=== PATIENT | female | born 1935 | race Caucasian/White ===

== ENCOUNTER → 2017-11-17 | Outpatient (CLI) | payer OTHER ==
[2017-11-17 23:11] LABS: MRSA BY PCR Negative (Negative)
== END | disposition home or self-care (01) ==
LOC: SURGPAT 13:26
DX: Z01.818 Encounter for other preprocedural examination (principal); M17.11 Unilateral primary osteoarthritis, right knee
CPT/HCPCS: 36415; 71046; 87641; 93005

== ENCOUNTER 2017-11-24 05:59 | Observation (INO) | payer OTHER ==
[2017-11-24] MEDS: IV RINGERS,LACTATED 1000ML 1,000 ML IV ×2 (06:49→10:37)
[2017-11-24] MEDS: CELECOXIB 200 MG CAPSULE. PO ×2 (06:55→20:45)
[2017-11-24] MEDS: ACETAMINOPHEN 500 MG TABLET PO (06:55)
[2017-11-24] MEDS ORDERED: MORPHINE SULFATE 4 MG/ML DISP.SYRIN. IV (07:00)
[2017-11-24] MEDS ORDERED: LIDOCAINE 2% PF Vial for OR 5 ML VIAL. (07:00)
[2017-11-24] MEDS ORDERED: DEXAMETHASONE SOD PHOS 20 MG/5 ML VIAL. (07:00)
[2017-11-24] MEDS ORDERED: ceFAZolin 2GM PREMIX 2 GM/50 ML BAG IV (07:00)
[2017-11-24] MEDS ORDERED: LIDOCAINE 1% PF 2 ML VIAL. ID (07:00)
[2017-11-24] MEDS ORDERED: fentaNYL PF VIAL 100 MCG/2 ML VIAL IV ×3 (07:00→12:15)
[2017-11-24] MEDS ORDERED: PROPOFOL 20 ML IV (07:00)
[2017-11-24] MEDS ORDERED: ONDANSETRON PF 4 MG/2 ML VIAL. (07:00)
[2017-11-24] MEDS ORDERED: PROCHLORPERAZINE 10 MG/2 ML VIAL. IV ×2 (07:00→12:15)
[2017-11-24 07:16] LABS: INR 1.1 (0.8-1.1); PARTIAL THROMBOPLASTIN TIME 29 SEC (24-38); PROTHROMBIN TIME PATIENT 13.1 SEC (11.7-14.0)
[2017-11-24] MEDS: TRANEXAMIC ACID 1,000 MG in IV NS 50ML -- 1ST BAG INJ ×2 (08:16→08:20)
[2017-11-24] MEDS: MORPHINE SULFATE 5 MG, KETOROLAC 30 MG, ROPIVacaine 0.5% PF 60 ML, EPINEPHrine 0.5 MG i... INT ART (08:25)
[2017-11-24] MEDS ORDERED: fentaNYL PF VIAL 100 MCG/2 ML VIAL ×2 (08:28→09:51)
[2017-11-24] MEDS ORDERED: SEVOFLURANE 61 TO 120 MINUTES. IH (08:58)
[2017-11-24] MEDS: TRANEXAMIC ACID 1,000 MG in IV NS 50ML -- 2ND BAG INJ (09:35)
[2017-11-24] MEDS: fentaNYL PF VIAL 100 MCG/2 ML VIAL IV ×3 (11:15→11:57)
[2017-11-24] MEDS ORDERED: DEXTROSE 50% 25 GM / 50ML DISP.SYRIN. IV (12:15)
[2017-11-24] MEDS ORDERED: CALCIUM CARBONATE 500 MG TAB.CHEW PO (12:15)
[2017-11-24] MEDS ORDERED: diphenhydrAMINE 50 MG/ML VIAL IV (12:15)
[2017-11-24] MEDS ORDERED: 0.9 % SODIUM CHLORIDE 10 ML DISP.SYRIN. IV (12:15)
[2017-11-24] MEDS ORDERED: HYDROcodone/APAP 10/325 1 TAB TABLET PO (12:15)
[2017-11-24] MEDS ORDERED: traMADol 50 MG TABLET PO ×2 (12:15)
[2017-11-24] MEDS ORDERED: oxyCODONE/APAP 5/325 1 TAB TABLET PO (12:15)
[2017-11-24] MEDS ORDERED: ACETAMINOPHEN 325 MG TABLET. PO (12:15)
[2017-11-24] MEDS: HYDROcodone/APAP 7.5/325MG 1 TAB TABLET PO ×3 (13:39→22:28)
[2017-11-24] MEDS ORDERED: ceFAZolin SODIUM 1 GM in IV DEXTROSE 5% 50 ML IV (14:00)
[2017-11-24] MEDS: ceFAZolin SODIUM IV Push 1 GM VIAL. IVP ×2 (14:28→20:22)
[2017-11-24] MEDS: CALCIUM CARB/VIT D3 500/200 TABLET. PO (16:45)
[2017-11-24] MEDS: oxyCODONE/APAP 7.5/325 1 TAB TABLET PO (18:38)
[2017-11-24] MEDS: ASPIRIN ENTERIC COATED 325 MG TABLET.DR. PO (20:45)
[2017-11-24] MEDS: ZOLPIDEM 5 MG TABLET. PO (23:07)
[2017-11-25] MEDS: ceFAZolin SODIUM IV Push 1 GM VIAL. IVP (02:25)
[2017-11-25] MEDS: PANTOPRAZOLE 40 MG TABLET.DR. PO (07:06)
[2017-11-25] MEDS: CELECOXIB 200 MG CAPSULE. PO (08:06)
[2017-11-25] MEDS: ASPIRIN ENTERIC COATED 325 MG TABLET.DR. PO (08:06)
[2017-11-25] MEDS: CALCIUM CARB/VIT D3 500/200 TABLET. PO (08:06)
[2017-11-25] MEDS: CHOLECALCIFEROL (VITAMIN D3) 1,000 UNIT TABLET PO (08:06)
[2017-11-25] MEDS: CITALOPRAM 20 MG TABLET. PO (08:07)
[2017-11-25] MEDS: LOSARTAN POTASSIUM 25 MG TABLET. PO (08:07)
[2017-11-25] MEDS: BISMUTH SUBSALICYLATE 262 MG/15 ML ORAL.SUSP 236ML BOTTLE. PO (08:09)
[2017-11-25] MEDS: HYDROcodone/APAP 7.5/325MG 1 TAB TABLET PO ×2 (10:07→12:58)
[2017-11-25] MEDS ORDERED: BISACODYL 10 MG SUPP.RECT. PR (16:00)
== END 2017-11-25 16:10 | disposition home health service (06) ==
LOC: SURG 05:59 → 4 SOUTHEST 12:05
DX: M17.11 Unilateral primary osteoarthritis, right knee (principal); Z87.891 Personal history of nicotine dependence; Z96.659 Presence of unspecified artificial knee joint
CPT/HCPCS: 27446; 36415; 73560; 85610; 85730; 86850; 86900; 86901; 88305; 88311; 96374; 96376; 97116-GP; 97150-GP; 97162-GP; 97530-GP; C1713; G0378; G0379; G8978-CL-GP; G8979-CJ-GP; G8980-CK-GP; J0171; J0690; J1100; J1885; J2270; J2405; J2704; J2795; J3010

== ENCOUNTER → 2019-01-13 | Outpatient (CLI) | payer OTHER ==
[2017-11-25 11:27] VITALS: BP 140/69
[~2019-01-13] MED LIST: ASPI325T11 PO; ASPI81TA50 PO; CALC-77 PO; CELE200C PO; CHOL10003 PO; CITA20TA6 PO; FERR325T3 PO; HYDR-2765 PO; IRBE300T3 PO; MELO7.5T29 PO; PANT20TA2 PO; WARF-78 PO; [UNRECOGNIZED DRUG - CODE] PO
--- NOTE | 2019-01-13 12:22 | RAD ---
MRI of the lumbar spine without contrast 01/13/2019 CLINICAL HISTORY: Low back pain which radiates down both legs, right greater than left. TECHNIQUE: Unenhanced T1-weighted and T2-weighted sagittal and axial and inversion recovery sagittal images the lumbar spine were obtained. FINDINGS: Comparison is made to radiographs lumbar spine dated 12/22/2018. Minimal S-shaped curvature of the thoracolumbar spine is seen. Degenerative signal changes are seen involving all the disks of the lumbar spine. Degenerative signal changes are seen within the marrow surrounding these discs. Loss of height at L5-S1 disc is noted. The conus medullaris is normal morphology, position, and signal characteristics. At the L1-2, L2-3 and L3-4 disc spaces there are minimal to mild generalized disc bulges. Degenerative changes are seen involving the facet joints bilaterally. There is mild ligamentum flavum hypertrophy bilaterally. Findings when combined do not result in significant central spinal canal or neural foraminal stenosis. At the L4-5 disc space there is a mild generalized disc bulge. Degenerative changes are seen involving the facet joints bilaterally. There is moderate ligamentum flavum hypertrophy bilaterally. These findings when combined result in mild right greater than left central spinal canal stenosis. No neural foraminal stenosis is seen. The L5-S1 disc space there is a mild to moderate generalized disc bulge. This is eccentric to the left. Degenerative changes are seen involving the facet joints bilaterally. There is mild ligament flavum hypertrophy bilaterally. These findings when combined do not result in significant central spinal canal stenosis. Mild left neural foraminal stenosis is seen. IMPRESSION: The changes of degenerative disc disease are seen involving the lumbar spine. These findings result in mild right greater than left central spinal canal stenosis at L4-5. Mild left neural foraminal stenosis is seen at L5-S1. Electronically signed by: Damon Vines MD (01/13/2019 12:19 PM) [facility]
== END | disposition home or self-care (01) ==
LOC: MRI 10:52
PROVIDERS: ATTEND Orthopaedic Surgery
DX: M51.36 Other intervertebral disc degeneration, lumbar region (principal); M48.07 Spinal stenosis, lumbosacral region; M51.27 Other intervertebral disc displacement, lumbosacral region; M47.817 Spondylosis without myelopathy or radiculopathy, lumbosacral region; M43.8X5 Other specified deforming dorsopathies, thoracolumbar region
CPT/HCPCS: 72148

== ENCOUNTER → 2020-01-06 | Day surgery (SDC) | payer OTHER ==
[~2020-01-06] MED LIST changes: +IRBE300T23 PO; -IRBE300T3 PO; +IV RINGERS,LACTATED 1000ML 1,000 ML IV SCH; +PROPOFOL 20 ML IV ONE
--- NOTE | 2020-01-06 09:49 | HP ---
ADMIT DATE: 01/06/2020 UPDATED HISTORY AND PHYSICAL REFERRING PHYSICIAN: Chito Goldberg. REASON: Diarrhea. HISTORY OF PRESENT ILLNESS: An 84-year-old female with past medical history significant for breast cancer, arthritis, depression, history of colonic polyps, hypertension, seen with persistent diarrhea associated with incontinence of stool, urgency and pain worsened with eating and present for years and recently has gotten worse, there has been no recent antibiotics or travel. Weight and appetite are stable. Prior colonoscopy in 2011 was nonrevealing. No family history of inflammatory bowel disease. Colon cancer is present. With continued issues, requests additional evaluation. PAST MEDICAL HISTORY: Significant for breast cancer, arthritis, depression, hemorrhoids, history of colonic polyps, hypertension. ALLERGIES: None. MEDICATIONS: Bismuth, calcium, Celebrex, vitamin D, citalopram, ferrous sulfate, irbesartan, Meloxicam, and pantoprazole. FAMILY HISTORY: Significant for MIs with both parents, breast cancer with an aunt, CVA with father, esophageal and stomach cancer with sibling. SOCIAL HISTORY: She is a former smoker and social drinker. PAST SURGICAL HISTORY: Significant for breast surgery and joint replacement. REVIEW OF SYSTEMS: Per records. PHYSICAL EXAMINATION: GENERAL: Reveals a well-nourished, well-developed female. VITAL SIGNS: Temperature is 97.7, pulse 87, respirations 20, pulse oximetry 97%. LUNGS: Clear. CARDIOVASCULAR: Reveals an S1, S2 without S3, S4 or appreciable murmur. ABDOMEN: Reveals a soft abdomen, normal bowel sounds, without appreciable hepatosplenomegaly or tenderness. IMPRESSION: Diarrhea, etiology is to be determined. Differential includes collagenous colitis, inflammatory bowel disease, diverticular disease, colon cancer, stricture, malabsorption possible as well. Therefore, I recommend colonoscopy. Risks and benefits of procedure have been previously discussed including risk of hemorrhage and perforation during the operation and she is willing to proceed at this time. PHIL CURTIS MD DR: COOPER/stephanie JOB#: [id number] / [id number]
[2020-01-06 10:00] VITALS: BP 166/90
--- NOTE | 2020-01-09 17:06 | PATHOLOGY ---
[facility] Accession Number: [id number] . 01 Material submitted: . colon - RANDOM COLON BIOPSIES . 01 Clinical history: . Chronic diarrhea . 02 Diagnosis: Colonic mucosa, random colon biopsies: - No significant pathologic abnormalities. (JPM:tessie; 01/09/2020) QMS 01/09/2020 1054 Local . 02 Comment: Sections of the random colon biopsy reveal multiple segments of colonic mucosa. There is no evidence of a colonic destructive colitis, lymphocytic colitis, or collagenous colitis. (JPM:tessie; 01/09/2020) . 02 Electronically signed: . Tommy Schwab MD, Pathologist NPI- [id number] . 01 Gross description: . The specimen is received in formalin, labeled "Andrisevic, Janey, random colon biopsies" and consists of multiple fragments of pink-corcoran tissue measuring 1.6 x 0.9 x 0.3 cm in aggregate which are entirely submitted in A1. ([facility]; 01/06/2020) JFQ/JFQ 01/06/2020 1504 Local . 02 Pathologist provided ICD-10: K52.9 . 02 CPT . 024968 Specimen Comment: A courtesy copy of this report has been sent to [phone] Specimen Comment: [id number] Specimen Comment: Report sent to / DR ZHENG Performed at: [facility] [address], [place] [id number] MD Gab Whyte MD Phone: [phone] Performed at: 02 [facility] [address] [place], [place] [id number] MD Tommy Schwab MD Phone: [phone]
== END | disposition home or self-care (01) ==
LOC: ENDOS 07:42
PROVIDERS: ATTEND Internal Medicine Gastroenterology
DX: R19.7 Diarrhea, unspecified (principal); K64.0 First degree hemorrhoids; K63.89 Other specified diseases of intestine; K57.30 Diverticulosis of large intestine without perforation or abscess without bleeding; I10 Essential (primary) hypertension; F32.9 Major depressive disorder, single episode, unspecified; M19.90 Unspecified osteoarthritis, unspecified site; Z86.010 Personal history of colon polyps; Z87.891 Personal history of nicotine dependence; Z85.3 Personal history of malignant neoplasm of breast; Z79.899 Other long term (current) drug therapy; Z82.3 Family history of stroke; Z98.890 Other specified postprocedural states
CPT/HCPCS: 45380; J2704; 88305